=== PATIENT | female | born 1940 | race Caucasian/White ===

== ENCOUNTER 2019-06-19 08:10 | Day surgery (SDC) | payer MEDICARE, BC ==
[2019-06-15 12:59] LABS: HEMATOCRIT 35.3 % (36.0-48.0); HEMOGLOBIN 11.1 g/dL (12-16); MCH 27.4 pg (26.0-34.0); MCHC 31.4 g/dL (31.0-37.0); MCV 87.2 fL (80.0-100.0); MEAN PLATELET VOLUME 10.4 fL (7.4-10.4); RBC 4.05 10x6/uL (4.00-5.40); RDW 14.2 % (11.5-14.5); WBC 14.6 10x3/uL (4.8-10.8)
[2019-06-15 13:17] LABS: ANION GAP 10.4 mmol/L (8-16); CALCIUM 9.6 mg/dL (8.5-10.1); CARBON DIOXIDE 31.3 mmol/L (21.0-32.0); CREATININE - SERUM 0.9 mg/dL (0.6-1.3); POTASSIUM - SERUM 4.7 mmol/L (3.5-5.1)
[~2019-06-19] VITALS: Ht 162.6 cm; Wt 100.0 kg
[2019-06-19] VITALS (8 sets, daily range): BP systolic 105–155; BP diastolic 46–73; Ht 162.6 cm; Wt 100.0 kg
[~2019-06-19 08:10] MED LIST: ALBUTEROL SULF8.5 GM INH; ALBUTEROL1.25 MG/3 INH; ASPIRIN325 MG PO; CRESTOR10 MG PO; GLUCOSE PO; LANTUS SOL100 UNIT/1 SC; LISINOPRIL-HCT1 EAC4 PO; NEURONTIN600 MG PO; NOVOLOG100 UNIT/1 SC; SINGULAIR10 MG PO; TOPROL XL50 MG PO
--- NOTE | 2019-06-19 10:03 | NUR ---
PT BS CHECKED AT THIS TIME, 137 NAD NOTED.
--- NOTE | 2019-06-19 12:50 | NUR ---
ICE APPLIED TO SHOULDER AND SLING IN PLACE ORDERED. FSBS 109 NO ACTION REQUIRED. PT A&O SITTING UP IN BED RESTING QUIETLY. DISCUSSED NEEDING OBSERVATION BED WITH . CALLED FOR BED WILL AWAIT ROOM NUMBER AND CPOC.
--- NOTE | 2019-06-19 15:07 | NUR ---
RCVED PT FROM RECOVERY ROOM VIA HOSPITAL BED AND STAFF. ALERT AND ORIENTED. VITALS STABLE. NO S/S OF DISTRESS AT THIS TIME, WILL CONT TO MONITOR.
[2019-06-20 00:30] VITALS: BP 152/68
[2019-06-20 04:30] VITALS: BP 157/64
--- NOTE | 2019-06-20 07:29 | NUR ---
I have reviewed this patient and I concur with the Shift Assessment completed by the Licensed Practical Nurse today this shift.
[2019-06-20 07:55] VITALS: BP 124/54
[2019-06-20] MEDS ORDERED: HYDROCODON-ACE1 EA10 PO (08:46)
--- NOTE | 2019-06-20 09:37 | MORECARE ---
CASE MANAGEMENT DISCHARGE SUMMARY PATIENT: CATHERINE SANZ UNIT: [id number] ADM DATE: 06/19/19 AGE: 78 : 40 SEX: F ROOM/BED: D.2240 AUTHOR: TOBIAS SERRANO PHYSICIAN: REFERRING PHYSICIAN: GARY CHAPARRO MD DATE OF SERVICE: 06/20/19 Discharge Plan Patient Name: CTAHERINE SANZ Facility: [facility]:[place] : 1940 Planned Disposition: Home with Home Health Anticipated Discharge Date: 06/20/19 Discharge Date: Expected LOS: 1 Initial Reviewer: [email or web address] Initial Review Date: 06/20/2019 Generated: 06/20/19 10:37 am External Providers External Provider: OTHER-OTHER Next Contact Date: Service Request Date: Service Type: Resolution: Reviewer: Comments: Patient Name: CATHERINE SANZ Page [phone] at 0937 All edits/amendments must be made on the electronic document DICTATION DATE: 06/20/19936 BELLPERSON: CLAUDINE 06/20/19936 RPT#: [id number] DC DATE: STATUS: REG [facility] [address] [place] [address] END OF REPORT
--- NOTE | 2019-06-20 09:45 | MORECARE ---
CASE MANAGEMENT DISCHARGE SUMMARY PATIENT: CATHERINE SANZ UNIT: [id number] ADM DATE: 06/19/19 AGE: 78 : 40 SEX: F ROOM/BED: D.2240 AUTHOR: TOBIAS SERRANO PHYSICIAN: REFERRING PHYSICIAN: GARY CHAPARRO MD DATE OF SERVICE: 06/20/19 Discharge Plan Patient Name: CATHERINE SANZ Facility: [facility]:[place] : 1940 Planned Disposition: Home with Home Health Anticipated Discharge Date: 06/20/19 Discharge Date: Expected LOS: 1 Initial Reviewer: [email or web address] Initial Review Date: 06/20/2019 Generated: 06/20/19 10:45 am Comments DCP- Discharge Planning Updated by [email or web address]: Lou Thornton on 06/20/19 8:[address] Patient Name: CATHERINE SANZ Admission Status: Elective Accout number: [id number] Admission Date: 06-19-2019 : 1940 Admission Diagnosis: Attending: GARY CHAPARRO Current LOS: 1 Anticipated DC Date: 06-20-2019 Planned Disposition: Home with Home Health Primary Insurance: MEDICARE A & B Discharge Planning Comments: RECEIVED DISCHARGE ORDERS. PATIENT WOULD LIKE HOME HEALTH AND DAVID CUELLAR GAVE ORDERS FOR HOME HEALTH. SHE STATES THAT SHE WOULD LIKE [facility]. I CALLED AND SPOKE TO ROSEANNA AT [facility] IN [place] AND CLINICAL AND ORDER FAXED. SHE STATES HER IS DRIVING HER HOME TODAY. HOME TODAY WITH [facility]. Docket Specialist: Lou Thornton Coverage Notice Reviewer: [id number] - Lou Thornton Notice Issued Date-Time: 06/20/2019 9:42 Notice Type: Patient Choice Letter Notice Delivered To: Patient Relationship to Patient: Self Exterminator Helper Termite Name: Delivery Method: HAND - Hand Delivered Sandra Days: Prior Verbal Notification: Recipient Understood Notice: Yes Recipient Signature: Yes Med Rec Note Co-signed by Attending: Coverage Notice Comment: [facility] [place] Last DP export: 06/20/19 8:37 a Patient Name: CATHERINE SANZ Page [id number] at 0945 All edits/amendments must be made on the electronic document DICTATION DATE: 06/20/19944 CASINO DEALER: CLAUDINE 06/20/19944 RPT#: [id number] DC DATE: STATUS: REG [facility] [address] [place] [address] END OF REPORT
--- NOTE | 2019-07-03 14:02 | MORECARE ---
CASE MANAGEMENT DISCHARGE SUMMARY PATIENT: CATHERINE SANZ UNIT: [id number] ADM DATE: 06/19/19 AGE: 78 : 40 SEX: F ROOM/BED: AUTHOR: TOBIAS SERRANO PHYSICIAN: REFERRING PHYSICIAN: GARY CHAPARRO MD DATE OF SERVICE: 07/03/19 Discharge Plan Patient Name: CATHERINE SANZ Facility: [facility]:[place] : 1940 Planned Disposition: Home with Home Health Anticipated Discharge Date: 06/20/19 Discharge Date: 06/20/2019 Expected LOS: 1 Initial Reviewer: [email or web address] Initial Review Date: 06/20/2019 Generated: 07/03/19 3:02 pm Comments DCP- Discharge Planning Updated by [email or web address]: Lou Thornton on 06/20/19 8:[address] Patient Name: CATHERINE SANZ Admission Status: Elective Accout number: [id number] Admission Date: 06-19-2019 : 1940 Admission Diagnosis: Attending: GARY CHAPARRO Current LOS: 1 Anticipated DC Date: 06-20-2019 Planned Disposition: Home with Home Health Primary Insurance: MEDICARE A & B Discharge Planning Comments: RECEIVED DISCHARGE ORDERS. PATIENT WOULD LIKE HOME HEALTH AND DAVID CUELLAR GAVE ORDERS FOR HOME HEALTH. SHE STATES THAT SHE WOULD LIKE [facility]. I CALLED AND SPOKE TO ROSEANNA AT [facility] IN [place] AND CLINICAL AND ORDER FAXED. SHE STATES HER IS DRIVING HER HOME TODAY. HOME TODAY WITH [facility]. Crystal Slicer: Lou Thornton Coverage Notice Reviewer: [id number] - Lou Thornton Notice Issued Date-Time: 06/20/2019 9:42 Notice Type: Patient Choice Letter Notice Delivered To: Patient Relationship to Patient: Self Stem Maker Name: Delivery Method: HAND - Hand Delivered Sandra Days: Prior Verbal Notification: Recipient Understood Notice: Yes Recipient Signature: Yes Med Rec Note Co-signed by Attending: Coverage Notice Comment: [facility] [place] Last DP export: 06/20/19 8:45 a Patient Name: CATHERINE SANZ Page [id number] at 1402 All edits/amendments must be made on the electronic document DICTATION DATE: 07/03/191401 MANAGER CARE MANAGEMENT: CLAUDINE 07/03/191401 RPT#: [id number] MT DATE:06/20/19 STATUS: [facility] [address] [place] [address] END OF REPORT
--- NOTE | 2019-07-04 15:11 | OP ---
PATIENT NAME: CATHERINE DE LA FUENTE MEDICAL RECORD: [id number] :40 LOCATION:[facility] ADMISSION DATE: SURGEON: KRYSTA PATEL, GARY COELHO DATE OF OPERATION: 06/19/2019 PREOPERATIVE DIAGNOSES: Impingement syndrome of the left shoulder with biceps tendinitis. POSTOPERATIVE DIAGNOSES: Impingement syndrome of the left shoulder with biceps tendinitis plus rotator cuff tear. PROCEDURES: 1. Left shoulder arthroscopy with rotator cuff repair. 2. Biceps tenotomy of the left shoulder arthroscopically. 3. Arthroscopic distal clavicle excision done through separate incision - 1 cm. 4. Arthroscopic subacromial decompression. SURGEON: Gary Chaparro MD ANESTHESIA: General. INTRAOPERATIVE COMPLICATIONS: None. SUMMARY OF PATHOLOGIC FINDINGS: Ms. De La Fuente was found to have full thickness rotator cuff tearing, severe biceps tendinitis, acromioclavicular arthritis as well as a downward sloping acromion with excoriation of the coracoacromial ligament consistent with impingement. OPERATIVE SUMMARY IN DETAIL: After obtaining the appropriate preoperative orthopedic surgery consents as well as anesthetic consultation evaluation and clearance, the patient was brought to the operating room and placed on the operating table in a supine position. After general laryngeal mask airway was administered, and the appropriate timeout was taken, the patient was placed in a right lateral decubitus position. All pressure points well-padded to include down leg peroneal pad as well as axillary roll. The patient was held firmly to the operating table using the vacuum pack suction system. Left upper extremity was then prepped and draped in routine sterile fashion. The arm was held in the [employer] traction boom at 30 degrees of forward flexion, 30 degrees of abduction, 10 pounds of traction laterally. Arthroscopy was established in the glenohumeral joint from posterior portal, anterior portal was established in the anterior safe interval. Diagnostic arthroscopy showed the patient had full thickness rotator cuff tearing as well as severe biceps tendinitis. At this point, the Wickes tissue ablation system from [employer] was brought in and a biceps tenotomy was performed at the bicipital labral junction. Attention was then turned to the subacromial space with accessory lateral portal created. A surface tissue ablation system was used to denude the undersurface of the acromion of all soft tissue elements and release the coracoacromial ligament. A 5-0 barrel bur was then used to perform acromioplasty at the level of acromioclavicular joint. The distal clavicle was indeed evaluated and found to be arthritic with grade IV changes. Then, through a separate incision anteriorly, distal clavicle was excised 1 cm using the arthroscopic bur. Having completed this, attention was turned to the rotator cuff. The rotator cuff footprint was decorticated and made available for repair. Then, a single horizontal mattress suture was placed through the rotator cuff tear using FiberTape and it was anchored laterally with a 5.5 SwiveLock from [employer]. OPERATIVE REPORT [id number] CATHERINE DE LA FUENTE Having completed this, arthroscopy portals were closed in routine interrupted fashion using 4-0 Prolene. Sterile dressings were applied. The patient was awakened and taken to recovery room in stable condition. All final needle and sponge counts were correct. TRANSINT:[id number] Voice Confirmation ID: [id number] DOCUMENT ID: [id number] GARY CHAPARRO MD at 1511 CC: [id number] DICTATION DATE: 07/04/19 0807 PHOTOENGRAVING PRINTER: 07/04/[address] [facility] 06/20/19 [facility] [address] [place] [address]
== END 2019-06-20 10:58 | disposition home or self-care (01) ==
LOC: D.OPS 08:10 → D.PAN 08:30 → D.OPS 10:45 → D.PAN 11:00 → D.OPS 11:30 → D.MS 13:25 → D.OPS 06-20 10:58
PROVIDERS: Anesthesiology; ATTEND Orthopaedic Surgery
DX: M75.41 Impingement syndrome of right shoulder (principal); M75.101 Unspecified rotator cuff tear or rupture of right shoulder, not specified as traumatic; E11.9 Type 2 diabetes mellitus without complications; I10 Essential (primary) hypertension